=== PATIENT | female | born 1985 | race African-American/Black ===

== ENCOUNTER 2025-10-09 11:07 | Emergency (ER) | payer OTHER ==
[~2025-10-09] VITALS: Ht 167.6 cm; Wt 100.0 kg
[2025-10-09 11:12] VITALS: O2SAT 95
[2025-10-09 12:08] LABS: BASOPHILS % 0.7 % (0.0-2.0); EOSINOPHILS % 2.4 % (0.0-5.0); HEMATOCRIT. 32.8 % (36.0-48.0); HEMOGLOBIN. 10.6 g/dL (12.0-16.0); LYMPHOCYTES % 34.8 % (20.0-50.0); MEAN PLATELET VOLUME 7.7 fl (7.4-10.4); MONOCYTES % 7.9 % (2.0-8.0); NEUTROPHILS % 54.2 % (40.0-76.0); PLATELET 273 x1000/uL (130-400); RED BLOOD CELL COUNT 4.23 mill/uL (4.2-5.4); RED CELL DISTRIBUTION WIDTH 15.8 % (11.6-14.6)
[2025-10-09 12:27] LABS: CREATININE 1.0 mg/dL (0.6-1.0); UREA NITROGEN BLOOD 9 mg/dL (9-23)
[2025-10-09 12:28] LABS: PROTEIN TOTAL 7.9 g/dL (6.0-8.3)
[2025-10-09 12:29] LABS: ASPARTATE AMINOTRANSFERASE 19 IU/L (<34)
[2025-10-09 12:30] LABS: BILIRUBIN DIRECT 0.1 mg/dL (<=3.0); BILIRUBIN TOTAL 0.4 mg/dL (0.1-1.0)
[2025-10-09 12:32] LABS: CLARITY URINE CLOUDY (CLEAR); COLOR URINE YELLOW (YELLOW); GLUCOSE URINE NEGATIVE (NEGATIVE); KETONES URINE TRACE (NEGATIVE); LEUKOCYTE ESTERASE URINE 2+ (NEGATIVE); NITRITE URINE POSITIVE (NEGATIVE); OCCULT BLOOD URINE TRACE (NEGATIVE); PH URINE 6.0 (4.5-8.0); PROTEIN URINE 1+ (NEGATIVE); SPECIFIC GRAVITY URINE 1.026 (1.005-1.030); UROBILINOGEN URINE 1.0 E.U./dL (0.2-1.0)
[2025-10-09] MEDS: ONDANSETRON 4MG ODT PO ONE (12:59)
[2025-10-09] MEDS: SODIUM CHLORIDE 0.9% 1,000 ML IV ONE (13:12)
[2025-10-09 13:20] LABS: HCG SCREEN NEGATIVE
[2025-10-09 13:31] LABS: SQUAMOUS EPITHELIAL CELL URINE 3+ /lpf (RARE/1+)
[2025-10-09 13:32] LABS: BACTERIA URINE 4+; RBC URINE 0-2 /hpf (0-2); WBC URINE 25-50 /hpf (0-2)
[2025-10-09 13:34] LABS: TRICHOMONAS URINE 1+
[2025-10-09] MEDS ORDERED: SULF1TAB48 MT (14:04)
[2025-10-09] MEDS ORDERED: ONDA-239 PO (14:05)
[2025-10-09 14:30] VITALS: BP 162/83; PULSE 75; RESP 18; TEMP 37; O2SAT 95
== END 2025-10-09 14:32 | disposition home or self-care (01) ==
LOC: ER 11:30
DX: K29.70 Gastritis, unspecified, without bleeding (principal); R11.2 Nausea with vomiting, unspecified; Z79.899 Other long term (current) drug therapy
CPT/HCPCS: 99283; 96360; 80076; 80048; 81003; 81025; 84703; 83690; 85025; 87086; 87186; 87077; 36415; Q0162; J7030